=== PATIENT | female | born 1990 | race Caucasian/White ===

== ENCOUNTER 2019-11-27 08:50 | Emergency (ER) | payer BC, SELFPAY ==
--- NOTE | ~2019-11-27 | CT_ITS ---
EXAMINATION: CT abdomen pelvis w con DATE: 11/27/2019 10:11 INDICATION: Abdominal pain. Diarrhea. TECHNIQUE: Computed tomography (CT) of the abdomen and pelvis was performed with 100 mL Omnipaque 350 intravenous contrast. Automated exposure control and iterative reconstruction technique were employe d. The dose-length product was 902.17 mGy-cm. COMPARISON: None. FINDINGS: The visualized portions of the lung bases demonstrate mild atelectasis. No pleural effusion . The heart size is normal. No pericardial effusion. There is diffuse hepatic steatosis. The gallblad hemalatha, spleen, pancreas, and right adrenal gland are normal. There is a 12 mm mass in left adrenal glan d measuring soft tissue attenuation. The kidneys are normal. There are no dilated loops of bowel. The appendix is normal. There are no pathologically enlarged lymph nodes. There is trace pelvic ascites. The bones are unremarkable. IMPRESSION: 1. Diffuse hepatic steatosis. 2. 12 mm left adrenal mass. In the absence of known malignancy, this finding is likely an adenoma. Reviewed, dictated and finalized at location A.
[2019-11-27 08:56] VITALS: BP 146/96; PULSE 110; RESP 14; TEMP 36.8; O2SAT 98
--- NOTE | 2019-11-27 08:58 | ED.NAVMDI ---
HPI - Nausea/Vomiting/Diarrhea General Chief complaint: Nausea/Vomiting/Diarrhea Stated complaint: N/V/D X4D Time Seen by Provider: 11/27/19 08:54 Source: patient Mode of arrival: ambulatory Limitations: no limitations History of Present Illness HPI Narrative: Patient is a 29-year-old female who presents for evaluation of a 4-day history of nausea, vomiting and diarrhea. Patient reports numerous episodes of nonbloody, nonbilious emesis, reports aching, cramping abdominal pain throughout her abdomen. This is all been going on for 4 days without improvement. Patient states she has been unable to tolerate oral intake. She reports watery diarrhea without blood or mucus. No fever, chills, cough or shortness of breath. No recent cough, cold or congestion. No recent sick contacts, family members in the house are all well. Patient reports mild abdominal distention as well. Related Data Allergies Allergy/AdvReac Type Severity Reaction Status Date / Time No Known Allergies Allergy Verified 11/27/19 09:02 Review of Systems Review of Systems: Narrative: CONSTITUTIONAL: Denies fever, chills, or sweats. EYES: Denies visual changes, redness, or discharge. ENT: Denies rhinorrhea, congestion, sore throat, or otalgia. CARDIOVASCULAR: Denies chest pain, palpitations, or edema. RESPIRATORY: Denies cough or dyspnea. GASTROINTESTINAL: Reports abdominal pain, nausea, vomiting and diarrhea GENITOURINARY: Denies dysuria or hematuria. SKIN: Denies rash or itching. MUSCULOSKELETAL: Denies back pain, joint pain, or myalgia. NEUROLOGIC: Denies headache, numbness, or weakness. PS PMFSH Past Medical History Medical History (Updated 11/27/19 @ 11:41 by Dian Alfonso MD) No pertinent past medical history Surgical History Surgical History (Updated 11/27/19 @ 09:04 by Dian Alfonso MD) H/O section Social History Social History (Updated 11/27/19 @ 09:04 by Dian Alfonso MD) Alcohol intake: never Substance use: never Living arrangements: with family Gender identity (if verbalized by the patient): Female Exam Narrative: Exam Narrative: GENERAL: Awake, alert, conversant HEAD: Normocephalic, atraumatic. EYES: PERRLA and EOMI. ENT: Nares clear, no rhinorrhea or epistaxis. Mucous membranes moist. NECK: Supple. CHEST: No respiratory distress, breathing even and non labored HEART: Tachycardic rate, sinus rhythm ABDOMEN: Mild distention, tender throughout, positive guarding, no rebound, no rigidity, tender in epigastric, right upper quadrant, periumbilical area, no suprapubic tenderness EXTREMITIES: Normal range of motion. No edema. SKIN: Warm, dry, no rash. NEURO:No focal deficits. Alert and oriented x3 Course Vital Signs Vital signs: Vital Signs Temperature 36.8 C 11/27/19 08:56 Pulse Rate 110 H 11/27/19 08:56 Respiratory Rate 14 11/27/19 08:56 Blood Pressure 146/96 H 11/27/19 08:56 Pulse Oximetry 98 11/27/19 08:56 Temperature 36.8 C 11/27/19 08:56 Pulse Rate 96 11/27/19 11:21 Respiratory Rate 15 11/27/19 11:21 Blood Pressure 123/83 11/27/19 11:21 Pulse Oximetry 100 11/27/19 11:21 MDM - Nausea/Vomiting/Diarrhea MDM Narrative Medical decision making narrative: Patient presented for nausea, vomiting diarrhea. Patient with mild, diffuse abdominal tenderness. Patient was given IV fluids, antiemetic with good improvement in her symptoms. Imaging results show no acute CT findings aside from an adrenal mass which the patient was made aware of. At this point, I find out that this likely an incidental finding. Patient's abdomen is soft without significant pain or signs of surgical abdomen on serial exams. Lab and imaging evaluations are reviewed and patient is felt to be a reasonable candidate for outpatient management.Pt with likely a UTI thus will given antibiotic for this. Patient was instructed as to limitations of imaging and lab evaluation and encouraged to return to the [facility]
[2019-11-27] MEDS: DICYCLOMINE HCL INJ 20 MG/2 ML VIAL IM (09:10)
[2019-11-27] MEDS: SODIUM CHLORIDE 0.9% IV 2,000 ML 999 ML IV CONT (09:11)
[2019-11-27] MEDS: ONDANSETRON INJ 4 MG/2 ML VIAL IV PUSH (09:11)
[2019-11-27 09:12] LABS: Glucose Point of Care 117 (65-105)
[2019-11-27 09:13] LABS: Basophils Absolute Auto 0.1 K/mm3 (0.0-0.1); Basophils Percent Auto 0.5 % (0.2-1.2); Eosinophils Absolute Auto 0.1 K/mm3 (0-0.3); Eosinophils Percent Auto 0.5 % (0-4.4); Hemoglobin 13.3 g/dL (12.0-15.0); Immature Granulocyte Absolute 0.05 K/mm3 (0.00-0.031); Immature Granulocyte Percent A 0.4 % (0-0.5); Lymphocytes Absolute Auto 2.97 K/mm3 (0.9-3.2); Lymphocytes Percent Auto 22.8 % (18.3-44.2); Mean Corpuscular HGB Conc 33.3 g/dl (32-36); Mean Corpuscular Hemoglobin 28.3 pg (26-34); Mean Corpuscular Volume 85.1 fl (80-100); Mean Platelet Volume 10.5 fl (7.4-10.4); Monocytes Absolute Auto 0.7 K/mm3 (0.1-0.6); Monocytes Percent Auto 5.4 % (2.6-8.5); Neutrophils Absolute Auto 9.2 K/mm3 (1.3-6.7); Neutrophils Percent Auto 70.4 % (45.5-73.1); Platelet Count Result 369 k/mm3 (150-375); Red Cell Distribution Width 15.1 % (11.5-14.5)
[2019-11-27 09:44] LABS: Alanine Aminotransferase 27 U/L (4-35); Albumin Level 4.4 g/dL (3.5-5.1); Alkaline Phosphatase 95 U/L (38-126); Aspartate Amino Transferase 30 U/L (14-36); Bilirubin,Total 0.6 mg/dL (0.2-1.3); Blood Urea Nitrogen 10 mg/dL (7-17); Calcium 9.1 mg/dL (8.4-10.2); Carbon Dioxide 23 mmol/L (22-30); Chloride 105 mmol/L (98-107); Estimated CRCL calculation 104 ml/min; Estimated Glomerular Filt Rate > 60; Glucose 111 mg/dL (65-105); Lipase 63 U/L (23-300); Sodium 136 mmol/L (137-145)
[2019-11-27 09:54] VITALS: BP 128/86; PULSE 75; RESP 14; O2SAT 97
[2019-11-27 10:05] LABS: Add Urine Microscopic? YES; Appearance Urine Cloudy (Clear); Bacteria Urine 1+ /hpf; Bilirubin Urine Negative (Negative); Blood Urine 1+ (Negative); Color Urine Yellow (Yellow); Glucose Urine UA Negative (Negative); Ketones Urine Negative (Negative); Leukocyte Esterase Ur 2+ LEU/UL (Negative); Mucus Urine Heavy /lpf; Nitrate Urine Negative (Negative); Protein Urine 2+ mg/dL (Negative); Specific Grav Ur 1.028 (1.001-1.035); Squamous Epithelial Cell Urine Many /hpf (Few); Urobilinogen Urine Negative mg/dL (<2.0)
[2019-11-27 11:21] VITALS: BP 123/83; PULSE 96; RESP 15; O2SAT 100
[2019-11-27 12:17] VITALS: BP 124/75; PULSE 85; RESP 14; O2SAT 99
== END 2019-11-27 12:17 | disposition home or self-care (01) ==
PROVIDERS: Emergency Provider Emergency Medicine
DX: K52.9 Noninfective gastroenteritis and colitis, unspecified (principal); E86.0 Dehydration; N30.00 Acute cystitis without hematuria; K76.0 Fatty (change of) liver, not elsewhere classified; E27.9 Disorder of adrenal gland, unspecified
CPT/HCPCS: 36415; 74177; 80053; 81001; 81025; 82948; 83690; 85025; 96361; 96365; 96372; 96375; 99284; J0500; J0696; J2405; J7030; Q9967